=== PATIENT | male | born 1955 | race Caucasian/White ===

== ENCOUNTER 2020-11-14 14:27 | Inpatient (IN) | payer MEDICARE, OTHER ==
[2020-11-14 16:24] LABS: #Lymphocytes 1.2 thou/uL (1.20-3.40); #Monocytes 1.1 thou/uL (0.11-0.59); #Neutrophils 15.4 thou/uL (1.40-6.50); %Basophils 0.1 % (0.0-1.0); %Eosinophils 0.3 % (0.0-10.0); %Lymphocytes 6.9 % (21.0-51.0); %Monocytes 6.3 % (0.0-10.0); %Neutrophils 86.5 % (42.0-75.0); Hemoglobin 16.4 g/dL (14.0-18.0); Mean Corpuscular HGB CONC 33.2 g/dL (32.0-36.0); Mean Corpuscular Hemoglobin 31.7 pg (27.0-31.0); Mean Corpuscular Volume 95.5 fL (78.0-98.0); Mean Platelet Volume 8.3 fL (7.4-10.4); Platelet Count 129 thou/uL (130-400); RBC Distribution Width 12.1 % (11.5-14.5); Red Blood Cell (RBC) Count 5.17 mill/uL (4.70-6.10); White Blood Cell (WBC) Count 17.8 thou/uL (4.8-10.8)
[2020-11-14 16:44] LABS: ALT (SGPT) 19 U/L (8-55); AST (SGOT) 10 U/L (5-34); Albumin 3.9 g/dL (3.4-4.8); Alkaline Phosphatase 90 U/L (40-110); Anion Gap 14 mmol/L (10-20); BUN (Urea Nitrogen) 15 mg/dL (8.4-25.7); Bilirubin, Total 1.4 mg/dL (0.2-1.2); Calc. Creatinine Clearance 0 mL/min (70-130); Calcium 9.1 mg/dL (7.8-10.44); Carbon Dioxide 23 mmol/L (23-31); Chloride 101 mmol/L (98-107); Globulin 3.5 g/dL (2.4-3.5); Glucose 121 mg/dL (80-115); Potassium 4.2 mmol/L (3.5-5.1); Protein, Total 7.4 g/dL (5.8-8.1); Sodium 134 mmol/L (136-145)
[2020-11-14] MEDS ORDERED: Vancomycin 1 GM/200 ML BAG ONE (17:40)
[2020-11-14 18:02] LABS: Bacteria/HPF None Seen HPF (None Seen); Bilirubin Negative (Negative); Blood, Urine Trace (Negative); Clarity Clear (Clear); Glucose, Urine (Dipstick) Normal (Negative); Ketone, Urine Negative (Negative); Leukocyte 250 Leu/uL (Negative); Nitrite Negative (Negative); Protein, Urine (Dipstick) 50 mg/dL (Neg-Trace); RBC/HPF 0-3 HPF (0-3); Specific Gravity, Urine 1.022 (1.002-1.036); Squamous Epithelial 0-3 HPF (0-3); WBC/HPF Greater than 50 HPF (0-3); pH, Urine 5.5 (5.0-9.0)
[2020-11-14] MEDS ORDERED: MEROPENEM 1 GM/50 ML 1 GM in Premix Bag 1 BAG IVPB SCH (18:15)
[2020-11-14] MEDS ORDERED: Acetaminophen 500 MG TAB ONE (23:45)
[2020-11-15] MEDS ORDERED: Acetaminophen 325 MG TAB PO PRN (00:25)
[2020-11-15] MEDS: Sodium Chloride 0.45% 1,000 ML IV SCH ×2 (01:09→15:31)
--- NOTE | 2020-11-15 01:19 | PDOC.HHP ---
Hospitalist HPI History of Present Illness: ADMISSION DATE: 11/15/2020 TIME OF ASSESSMENT:003 PRIMARY CARE PHYSICIAN: Dr. Shruthi Mroton CHIEF COMPLAINT: Dysuria and fever HPI: This is a pleasant 65-year-old gentleman who presents to the emergency department as instructed by his primary care physician Dr. Jose cassidy after undergoing laboratory studies indicated he had an infection. The patient states he first noted feeling unwell last Friday with chills, and general malaise as well as a burning sensation with urination. Reports having a urinary tract infection years ago. By Friday he was feeling worse and saw his primary care doctor on Friday. He was found to have a urine infection and started on oral an tibiotics with ciprofloxacin. The patient did not feel any better after starting antibiotics Friday evening and states he had laboratory studies done today indicating he had a significant infection therefore advised to come into the emergency department for IV antibiotics. Labs had demonstrated a white cell count of 20 and bands of 19%. At the moment he feels well but complains of a mild headache and burning behind his eyes which he associates to having a high temperature. He was just given a gram of Tylenol in a few minutes ago. He states his urine output has decreased over the weekend and recalls having limited p.o. intake on Friday. States his appetite has been low but he denies any nausea or vomiting. No diarrhea. Denies any hematuria. No chest pain palpitations or shortness of breath. No cough or hemoptysis. All other review of systems are negative. Patient states when he had a urine infection several years ago he was seen by urologist who completed a cystoscopy. The patient was told that he had normal anatomy associated with scarring possibly related to horseback riding which he did in his younger years. He was told if he ever needed a Leon catheter and needed to be placed by a urologist. ED COURSE: Vital signs on arrival to the emergency department showed a blood pressure 157/82, HR 88, RR 17, O2 sat 97% on room air, temp 90.9. Laboratory studies showing a white cell count of 17.8, hemoglobin 16.4, hematocrit 49.4, platelets 129, neutrophils 86.4%. Sodium 134, potassium 4.2, BUN 15, creatinine 1.7, GFR 69. Glucose 121, calcium 9.1, total bilirubin 1.4, AST 10, ALT 19, alkaline phosphatase 90. Lactic acid 1.2 Urinalysis demonstrated 250 leukocytes, negative for nitrates, 50 protein, 2.0 urobilinogen, trace blood, greater than 50 white blood cells, no bacteria present. He was started on IV antibiotics with meropenem and vancomycin. He received 1 L of normal saline. His temperature spiked and therefore was given 1 g of Tylenol. Allergies/Adverse Reactions: Allergy/AdvReac Type Severity Reaction Status Date / Time ceftriaxone [From Rocephin] Allergy Hives Unverified 11/14/20 18:13 Past History: PAST MEDICAL HISTORY: None PAST SURGICAL HISTORY: None SOCIAL HISTORY: Denies any tobacco use, alcohol consumption or drug use. Fully independent at baseline. FAMILY HISTORY: Noncontributory Hospitalist Exam Vitals: Vital signs temp 98.9, HR 85, BP 138/74, RR 27, O2 sat 94% on room General Appearance: NAD, awake alert Eye: PERRL, anicteric sclera ENT: normocephalic atraumatic, no oropharyngeal lesions, dry oral mucosa Neck: supple, no lymphadenopathy Heart: RRR, no murmur, no gallops, no rubs, normal peripheral pulses Respiratory: CTAB, no wheezes, no rales, no ronchi, normal chest expansion Gastrointestinal: soft, non-tender, non-distended, normal bowel sounds, no guarding, no rigidity Extremities: no cyanosis, no clubbing, no edema Skin: normal turgor, no lesions, no rashes Neurological: cranial nerve grossly intact, normal sensation to touch Musculoskeletal: normal tone, normal strength, no muscle wasting Psychiatric: normal affect, normal behavior, A&O x 3 Hospitalist Results Result Diagrams: 11/14/20 16:05 11/14/20 16:05 Lab results: Laboratory Last Values WBC 17.8 thou/uL (4.8-10.8) H 11/14/20 16:05 RBC 5.17 mill/uL (4.70-6.10) 11/14/20 16:05 Hgb 16.4 g/dL (14.0-18.0) 11/14/20 16:05 Hct 49.4 % (42.0-52.0) 11/14/20 16:05 MCV 95.5 fL (78.0-98.0) 11/14/20 16:05 MCH 31.7 pg (27.0-31.0) H 11/14/20 16:05 MCHC 33.2 g/dL (32.0-36.0) 11/14/20 16:05 RDW 12.1 % (11.5-14.5) 11/14/20 16:05 Plt Count 129 thou/uL (130-400) L 11/14/20 16:05 MPV 8.3 fL (7.4-10.4) 11/14/20 16:05 Neutrophils % 86.5 % (42.0-75.0) H 11/14/20 16:05 Lymphocytes % 6.9 % (21.0-51.0) L 11/14/20 16:05 Monocytes % 6.3 % (0.0-10.0) 11/14/20 16:05 Eosinophils % 0.3 % (0.0-10.0) 11/14/20 16:05 Basophils % 0.1 % (0.0-1.0) 11/14/20 16:05 Neutrophils # 15.4 thou/uL (1.40-6.50) H 11/14/20 16:05 Lymphocytes # 1.2 thou/uL (1.20-3.40) 11/14/20 16:05 Monocytes # 1.1 thou/uL (0.11-0.59) H 11/14/20 16:05 Eosinophils # 0.0 thou/uL (0.0-0.7) 11/14/20 16:05 Basophils # 0.0 thou/uL (0.0-0.2) 11/14/20 16:05 Sodium 134 mmol/L (136-145) L 11/14/20 16:05 Potassium 4.2 mmol/L (3.5-5.1) 11/14/20 16:05 Chloride 101 mmol/L (98-107) 11/14/20 16:05 Carbon Dioxide 23 mmol/L (23-31) 11/14/20 16:05 Anion Gap 14 mmol/L (10-20) 11/14/20 16:05 BUN 15 mg/dL (8.4-25.7) 11/14/20 16:05 Creatinine 1.07 mg/dL (0.7-1.3) 11/14/20 16:05 Estimated GFR (MDRD) 69 11/14/20 16:05 Glucose 121 mg/dL (80-115) H 11/14/20 16:05 Lactic Acid 1.2 mmol/L (0.5-2.2) 11/14/20 16:05 Calcium 9.1 mg/dL (7.8-10.44) 11/14/20 16:05 Total Bilirubin 1.4 mg/dL (0.2-1.2) H 11/14/20 16:05 AST 10 U/L (5-34) 11/14/20 16:05 ALT 19 U/L (8-55) 11/14/20 16:05 Alkaline Phosphatase 90 U/L (40-110) 11/14/20 16:05 Serum Total Protein 7.4 g/dL (5.8-8.1) 11/14/20 16:05 Albumin 3.9 g/dL (3.4-4.8) 11/14/20 16:05 Globulin 3.5 g/dL (2.4-3.5) 11/14/20 16:05 Albumin/Globulin Ratio 1.1 g/dL (1.2-2.2) L 11/14/20 16:05 Urine Color Yellow (Yellow) 11/14/20 17:37 Urine Clarity Clear (Clear) 11/14/20 17:37 Urine pH 5.5 (5.0-9.0) 11/14/20 17:37 Ur Specific [place] 1.022 (1.002-1.036) 11/14/20 17:37 Urine Protein 50 mg/dL (Neg-Trace) A 11/14/20 17:37 Urine Glucose (UA) Normal mg/dL (Negative) 11/14/20 17:37 Urine Ketones Negative mg/dL (Negative) 11/14/20 17:37 Urine Blood Trace (Negative) A 11/14/20 17:37 Urine Nitrite Negative (Negative) 11/14/20 17:37 Urine Bilirubin Negative (Negative) 11/14/20 17:37 Urine Urobilinogen 2.0 mg/dL (Less than 2) A 11/14/20 17:37 Ur Leukocyte Esterase 250 Eriberto/uL (Negative) A 11/14/20 17:37 Urine RBC 0-3 HPF (0-3) 11/14/20 17:37 Urine WBC Greater than 50 HPF (0-3) A 11/14/20 17:37 Ur Squamous Epith Cells 0-3 HPF (0-3) 11/14/20 17:37 Urine Bacteria None Seen HPF (None Seen) 11/14/20 17:37 Hospitalist H&P A/P (1) Fever with leukocytosis and leukocyte count less than 20,000 Code(s): D72.829 - ELEVATED WHITE BLOOD CELL COUNT, UNSPECIFIED Status: Acute (2) Dysuria Code(s): R30.0 - DYSURIA Status: Acute (3) UTI (urinary tract infection) Status: Acute Plan: Continue IV antibiotics UCx and BCx done with results pending IV fluids started COVID testing ordered If patient developed retention requiring leon cath, will need to be placed by Urology due to abnormal anatomy/scarring. Tylenol for TOBIN/Fever prn GI Prophylaxis with famotidine DVT Prophylaxis with mechanical SCDs CODE STATUS FULL Case discussed with attending who agrees with plan as above
[2020-11-15] MEDS ORDERED: VANCOMYCIN 1.75 GM/350 ML BAG 1.75 GM in Premix Bag 1 BAG IVPB SCH (04:00)
[2020-11-15 05:45] LABS: SARS-CoV-2 PCR by NAA Not Detected (NotDetected)
[2020-11-15] MEDS ORDERED: Meropenem 1 GM in Sodium Chloride 0.9% 100 ML IVPB SCH (06:00)
--- NOTE | 2020-11-15 07:52 | RAD ---
EXAM: CHEST TWO VIEWS 11/15/2020 7:48 AM HISTORY: Baseline chest radiograph COMPARISON: None. FINDINGS: Lungs: No acute airspace consolidation. Heart: Normal in size and contour. Pulmonary Vessels: Normal. Costophrenic Angles: Clear. Pneumothorax: None. Osseous Structures: There are flowing osteophytes involving the anterior margin of the mid thoracic spine consistent with DISH like changes. No acute fracture or subluxation demonstrated. Additional Findings: None. IMPRESSION: No significant acute intrathoracic disease.
[2020-11-15 08:35] LABS: #Eosinphils 0.1 thou/uL (0.0-0.7); #Lymphocytes 0.7 thou/uL (1.20-3.40); #Monocytes 0.6 thou/uL (0.11-0.59); #Neutrophils 10.1 thou/uL (1.40-6.50); %Basophils 0.2 % (0.0-1.0); %Eosinophils 0.7 % (0.0-10.0); %Lymphocytes 5.8 % (21.0-51.0); %Monocytes 4.9 % (0.0-10.0); %Neutrophils 88.4 % (42.0-75.0); Hemoglobin 14.6 g/dL (14.0-18.0); Mean Corpuscular HGB CONC 33.6 g/dL (32.0-36.0); Mean Corpuscular Hemoglobin 32.6 pg (27.0-31.0); Mean Platelet Volume 8.4 fL (7.4-10.4); Platelet Count 121 thou/uL (130-400); RBC Distribution Width 12.1 % (11.5-14.5); Red Blood Cell (RBC) Count 4.47 mill/uL (4.70-6.10); White Blood Cell (WBC) Count 11.4 thou/uL (4.8-10.8)
[2020-11-15] MEDS: Famotidine/PF 20 mg/2ml Vial SLOW IVP SCH ×2 (08:40→21:17)
[2020-11-15 09:03] LABS: Anion Gap 14 mmol/L (10-20); BUN (Urea Nitrogen) 17 mg/dL (8.4-25.7); Calc. Creatinine Clearance 109 mL/min (70-130); Calcium 8.4 mg/dL (7.8-10.44); Carbon Dioxide 24 mmol/L (23-31); Chloride 103 mmol/L (98-107); Glucose 166 mg/dL (80-115); Magnesium 2.1 mg/dL (1.6-2.6); Potassium 3.8 mmol/L (3.5-5.1); Sodium 137 mmol/L (136-145)
[2020-11-15] MEDS: MEROPENEM 1 GM/50 ML 1 GM in Premix Bag 1 BAG IVPB SCH ×3 (10:17→23:00)
[2020-11-15] MEDS: VANCOMYCIN 1.75 GM/350 ML BAG 1.75 GM in Premix Bag 1 BAG IVPB SCH ×2 (11:42→21:00)
[2020-11-15 12:06] VITALS: BMI 32.8
--- NOTE | 2020-11-15 17:42 | PDOC.HOSPP ---
- Subjective Encounter Date: 11/15/20 Encounter Time: 17:41 Subjective: Mr. Whitmore was seen today in follow-up of sepsis, likely from UTI. He says he feels better today. No new complaints. - Objective Vital Signs & Weight: Vital Signs (12 hours) Temp Pulse Resp BP Pulse Ox 11/15/20 16:32 99.7 F H 76 18 120/67 94 L 11/15/20 11:23 97.9 F 96 20 132/75 96 11/15/20 08:00 95 11/15/20 06:00 97.9 F 86 20 128/73 95 Weight Weight 242 lb I&O: 11/14/20 11/15/20 11/16/20 06:59 06:59 06:59 Intake Total 640 Balance 640 Result Diagrams: 11/15/20 07:57 11/15/20 07:57 Hospitalist ROS - Medication Medications: Active Medications Generic Name Dose Route Start Last Admin Trade Name Freq PRN Reason Stop Dose Admin Famotidine 20 mg 11/15/20 09:00 11/15/20 08:40 Famotidine/Pf 20 Mg/2ml Vial SLOW IVP 20 mg Q12HR TOÑITO Administration Sodium Chloride 1,000 mls @ 75 mls/hr 11/15/20 01:00 11/15/20 15:31 1/2 Normal Saline IV 1,000 mls .[id number] TOÑITO Administration Meropenem 1 gm/ Device 50 mls @ 100 mls/hr 11/15/20 06:00 11/15/20 15:29 IVPB 50 mls Q8HR TOÑITO Administration Vancomycin HCl 1.75 gm/ Device 350 mls @ 175 mls/hr 11/15/20 08:00 11/15/20 11:42 IVPB 350 mls 0800,2000 TOÑITO Administration Hospitalist Exam Vitals: Vital Signs (12 hours) Temp Pulse Resp BP Pulse Ox 11/15/20 16:32 99.7 F H 76 18 120/67 94 L 11/15/20 11:23 97.9 F 96 20 132/75 96 11/15/20 08:00 95 11/15/20 06:00 97.9 F 86 20 128/73 95 Weight Weight 242 lb General Appearance: NAD, awake alert Eye: PERRL, anicteric sclera Heart: RRR, no murmur, no gallops, no rubs, normal peripheral pulses Respiratory: CTAB, no wheezes, no rales, no ronchi, normal chest expansion, no tachypnea, normal percussion Gastrointestinal: soft, non-tender, non-distended, normal bowel sounds, no palpable masses, no hepatomegaly Extremities: no cyanosis (palpable d.p. pulses, no lesions), 1+ LE edema Hosp A/P (1) UTI (urinary tract infection) Status: Acute (2) Fever Code(s): R50.9 - FEVER, UNSPECIFIED Status: Acute - Plan * Fever and Leukocytosis- likely due to UTI * Awaiting culture results * Will check a post void residual to determine if he has urinary retention * Will change his status to inpatient
[2020-11-16] MEDS: MEROPENEM 1 GM/50 ML 1 GM in Premix Bag 1 BAG IVPB SCH (06:24)
[2020-11-16] MEDS: Sodium Chloride 0.45% 1,000 ML IV SCH ×2 (06:28→20:38)
[2020-11-16] MEDS: VANCOMYCIN 1.75 GM/350 ML BAG 1.75 GM in Premix Bag 1 BAG IVPB SCH (08:22)
[2020-11-16] MEDS: Famotidine/PF 20 mg/2ml Vial SLOW IVP SCH ×2 (08:23→20:40)
[2020-11-16] MEDS ORDERED: Sulfameth/Trimethoprim DS 800-160mg TAB PO SCH (09:00)
--- NOTE | 2020-11-16 11:34 | PDOC.HOSPP ---
- Subjective Encounter Date: 11/16/20 Encounter Time: 11:23 - Objective Vital Signs & Weight: Vital Signs (12 hours) Temp Pulse Resp BP Pulse Ox 11/16/20 08:00 94 L 11/16/20 07:37 98.0 F 67 20 118/68 94 L 11/16/20 04:00 98.6 F 76 18 133/78 11/16/20 00:00 99 F 83 18 111/65 98 Weight Weight 242 lb I&O: 11/15/20 11/16/20 11/17/20 06:59 06:59 06:59 Intake Total 960 480 Output Total 260 Balance 700 480 Result Diagrams: 11/15/20 07:57 11/15/20 07:57 Hospitalist ROS - Medication Medications: Active Medications Generic Name Dose Route Start Last Admin Trade Name Freq PRN Reason Stop Dose Admin Acetaminophen 650 mg 11/15/20 00:25 11/16/20 01:18 Acetaminophen 325 Mg Tab PO 650 mg Q4H PRN Administration Headache/Fever or Pain Famotidine 20 mg 11/15/20 09:00 11/16/20 08:23 Famotidine/Pf 20 Mg/2ml Vial SLOW IVP 20 mg Q12HR TOÑITO Administration Sodium Chloride 1,000 mls @ 75 mls/hr 11/15/20 01:00 11/16/20 06:28 1/2 Normal Saline IV 1,000 mls .[id number] TOÑITO Administration Hospitalist Exam Vitals: Vital Signs (12 hours) Temp Pulse Resp BP Pulse Ox 11/16/20 08:00 94 L 11/16/20 07:37 98.0 F 67 20 118/68 94 L 11/16/20 04:00 98.6 F 76 18 133/78 11/16/20 00:00 99 F 83 18 111/65 98 Weight Weight 242 lb
--- NOTE | 2020-11-16 15:23 | PDOC.HOSPP ---
- Subjective Encounter Date: 11/16/20 Encounter Time: 11:23 Subjective: F/u: UTI The patient states he had a bad night last night. He reports his whole shirt was soaked in sweat. He denies dysuria, nausea/vomiting, abdominal pain - Objective Vital Signs & Weight: Vital Signs (12 hours) Temp Pulse Resp BP Pulse Ox 11/16/20 12:00 98.0 F 72 20 129/75 97 11/16/20 08:00 94 L 11/16/20 07:37 98.0 F 67 20 118/68 94 L 11/16/20 04:00 98.6 F 76 18 133/78 Weight Weight 242 lb I&O: 11/15/20 11/16/20 11/17/20 06:59 06:59 06:59 Intake Total 960 800 Output Total 260 Balance 700 800 Result Diagrams: 11/15/20 07:57 11/15/20 07:57 Hospitalist ROS - Review of Systems Constitutional: denies: fever, chills - Medication Medications: Active Medications Generic Name Dose Route Start Last Admin Trade Name Freq PRN Reason Stop Dose Admin Acetaminophen 650 mg 11/15/20 00:25 11/16/20 01:18 Acetaminophen 325 Mg Tab PO 650 mg Q4H PRN Administration Headache/Fever or Pain Famotidine 20 mg 11/15/20 09:00 11/16/20 08:23 Famotidine/Pf 20 Mg/2ml Vial SLOW IVP 20 mg Q12HR TOÑITO Administration Sodium Chloride 1,000 mls @ 75 mls/hr 11/15/20 01:00 11/16/20 06:28 1/2 Normal Saline IV 1,000 mls .[id number] TOÑITO Administration Hospitalist Exam Vitals: Vital Signs (12 hours) Temp Pulse Resp BP Pulse Ox 11/16/20 12:00 98.0 F 72 20 129/75 97 11/16/20 08:00 94 L 11/16/20 07:37 98.0 F 67 20 118/68 94 L 11/16/20 04:00 98.6 F 76 18 133/78 Weight Weight 242 lb General Appearance: NAD, awake alert Eye: PERRL, anicteric sclera ENT: normocephalic atraumatic, no oropharyngeal lesions Neck: no JVD Heart: RRR, no murmur, no gallops, no rubs Respiratory: CTAB, no wheezes, no rales, no ronchi, no tachypnea Gastrointestinal: soft, non-tender, non-distended, normal bowel sounds Extremities: no cyanosis, no clubbing, no edema Skin: normal turgor, no lesions, no rashes Hosp A/P - Plan Chest Xray: normal This is a 65 year old male who presented with sweats, chills and dysuria. He was diagnosed with a UTI UTI - failed outpatient ciprofloxacin. WBC has improved to 11. Blood cultures negative, urine culture grew biggs-sensitive E coli - will d/c IV antibiotics and switch to oral levaquin. Monitor clinical response and repeat CBC tomorrow - likely d/c in the am if improves Leukocytosis - WBC 11.4, will repeat CBC today to evaluate for improvement Dispo: likely d/c tomorrow
--- NOTE | 2020-11-16 15:26 | PQF ---
CLINICAL DOCUMENTATION CLARIFICATION FORM: Dear Dr. GUERRA Date / Time: 11/16/2020 3299 Please exercise your independent, professional judgment in responding to the clarification form. Clinical indicators are provided on the bottom of this form for your review. Please check appropriate box(es): [ ] Sepsis due to UTI [ ] Sepsis not due to UTI [ S ] Localized infection without sepsis [ ] SIRS due to non-infectious process (please specify etiology) [ ] with organ dysfunction [ ] without organ dysfunction [ ] Other diagnosis [ ] Unable to determine In addition, please specify: Present on Admission (POA): [ S ] Yes [ ] No [ ] Unable to determine For continuity of documentation, please document condition throughout progress notes and discharge summary. Thank You. To be completed by CDI/Coding staff for physician review: CLINICAL INDICATORS - SIGNS / SYMPTOMS / LABS / RESULTS AND LOCATION IN MR WBC 3/ 17.8 WBC 3/ 11.4 Pt stated he first noted feeling unwell last Friday with chills, and general malaise as well as a burning sensation with urination. By Friday he was feeling worse and saw his primary care doctor on Friday. He was found to have a urine infection and started on oral antibiotics with ciprofloxaxin. (H&P/Murry) 3/ Mr Whitmore was seen today in follow up of sepsis, likely from UTI. A/P UTI, FEVER(PN/Abdias) 3/3 RISK FACTORS / RESULTS AND LOCATION IN MR UTI, fever w leukocytosis ( H&P/ Murry) 3/3 TREATMENTS / RESULTS AND LOCATION IN MR Urine culture 3/2 Vancomycin IV ( 11/15 present) Thank you! CDS Signature: Gina Dow RN Phone #: [phone] Date: 11/16/20 This is a permanent part of the Medical Record [facility]
[2020-11-16 15:58] LABS: Mean Corpuscular HGB CONC 34.3 g/dL (32.0-36.0); Mean Corpuscular Hemoglobin 32.8 pg (27.0-31.0); Mean Corpuscular Volume 95.5 fL (78.0-98.0); Mean Platelet Volume 7.6 fL (7.4-10.4); Platelet Count 132 thou/uL (130-400); Red Blood Cell (RBC) Count 4.28 mill/uL (4.70-6.10); White Blood Cell (WBC) Count 5.5 thou/uL (4.8-10.8)
[2020-11-17 06:17] LABS: Hemoglobin 14.8 g/dL (14.0-18.0); Mean Corpuscular HGB CONC 32.7 g/dL (32.0-36.0); Mean Corpuscular Volume 94.8 fL (78.0-98.0); Mean Platelet Volume 8.1 fL (7.4-10.4); Platelet Count 157 thou/uL (130-400); RBC Distribution Width 12.1 % (11.5-14.5); Red Blood Cell (RBC) Count 4.78 mill/uL (4.70-6.10); White Blood Cell (WBC) Count 7.7 thou/uL (4.8-10.8)
[2020-11-17] MEDS: Sodium Chloride 0.45% 1,000 ML IV SCH (06:27)
[2020-11-17 06:41] LABS: ALT (SGPT) 61 U/L (8-55); AST (SGOT) 24 U/L (5-34); Albumin 3.6 g/dL (3.4-4.8); Alkaline Phosphatase 80 U/L (40-110); Anion Gap 13 mmol/L (10-20); BUN (Urea Nitrogen) 12 mg/dL (8.4-25.7); Bilirubin, Total 0.9 mg/dL (0.2-1.2); Calc. Creatinine Clearance 131 mL/min (70-130); Calcium 8.8 mg/dL (7.8-10.44); Carbon Dioxide 21 mmol/L (23-31); Chloride 105 mmol/L (98-107); Globulin 3.2 g/dL (2.4-3.5); Glucose 138 mg/dL (80-115); Protein, Total 6.8 g/dL (5.8-8.1); Sodium 135 mmol/L (136-145)
[2020-11-17 08:13] VITALS: BP 129/69; TEMP 98.6
[2020-11-17] MEDS: Famotidine/PF 20 mg/2ml Vial SLOW IVP SCH (08:51)
--- NOTE | 2020-11-17 15:32 | PDOC.DS.DS ---
Provider Date of Admission: 11/15/20 17:41 Date of Discharge: 11/17/20 Admitting Provider: Balaji Hickman MD Primary Care Physician: Shruthi Morton MD Course Hospital Course: Discharge Diagnoses: 1. Acute cystitis 2. Leukocytosis 3. Mildly elevated ALT Brief HPI: This is a 65 year old male who presented with chills, general malaise and dysuria. The patient went to his PCP's office and was treated with ciprofloxacin for a UTI. He took two pills of this and had blood work the following day. He had a WBC of 20 and was told to go to the hospital. Vital signs were normal. Hospital Course: The patient was started on IV vancomycin and meropenem on admission. Urine c ulture grew E coli that was biggs-sensitive. His leukocytosis resolved. The patient was transitioned to levaquin. His WBC the following day remained normal at 7.7. He denied any dysuria. He was discharged with six more days of levaquin. He was advised to follow up with his primary care doctor in a week. Of note, his ALT slightly increased to 61 at the time of discharge. Please repeat this in a week. Pertinent Studies: Chest Xray: no acute disease Resuscitation Status: 11/15/20 00:19 Resuscitation Status Routine Co-Sign Provider: Resuscitation Status: FULL: Full Resuscitation Lab Results: 11/17/20 05:50 11/17/20 05:50 Abnormal Lab Results - Last 48 hrs 11/16/20 15:50: RBC 4.28 L, Hct 40.9 L, MCH 32.8 H 11/17/20 05:50: Sodium 135 L, Carbon Dioxide 21 L, ALT 61 H, Albumin/Globulin Ratio 1.1 L Microbiology - Entire Visit 11/14/20 17:37 Urine voided Urine Culture - Final NO GROWTH AT 48 HOURS 11/14/20 16:05 Venous blood - Left Hand Blood Culture - Preliminary NO GROWTH AT 48 HOURS 11/14/20 16:05 Venous blood - Left Arm Blood Culture - Preliminary NO GROWTH AT 48 HOURS Vitals: Vital Signs (12 hours) Temp Pulse Resp BP Pulse Ox 11/17/20 08:00 98.6 F 74 15 129/69 95 Weight Weight 242 lb Physical Exam: The patient was seen and examined on the day of discharge. General Appearance: NAD, awake alert Eye: PERRL, anicteric sclera ENT: normocephalic atraumatic, no oropharyngeal lesions Neck: supple, symmetric, no JVD Respiratory: CTAB, no wheezes, no rales, no ronchi, no tachypnea Cardiovascular: RRR, no murmur, no gallops, no rubs Gastrointestinal: soft, non-tender, non-distended, normal bowel sounds Extremities: no cyanosis, no clubbing, no edema Skin: normal turgor, no lesions, no rashes Neurological: cranial nerve grossly intact, normal sensation to touch, no focal deficits Musculoskeletal: normal tone, normal strength, no muscle wasting, generalized weakness PSYCH: normal affect, normal behavior, A&O x 3 Plan Prescriptions: Levofloxacin [Levaquin] 750 mg PO 0600 #5 tab Home Medications: Medication Instructions Recorded Confirmed Type Levofloxacin [Levaquin] 750 mg PO 0600 #5 tab 11/17/20 Rx Allergies: ceftriaxone [From Rocephin] Allergy (Intermediate, Verified 11/15/20 11:56) Hives sulfamethoxazole [From Bactrim] Allergy (Verified 11/16/20 09:18) Hives trimethoprim [From Bactrim] Allergy (Verified 11/16/20 09:18) Discharge Instructions:: You presented with a UTI. Your urine culture grew E coli. Please take levaquin for five more days to complete a seven day course of antibiotics. Follow up with your PCP in a week. One of your liver enzymes was slightly elevated (ALT was 61). Please repeat this in a week. Activity:: Activity as Tolerated Referrals: Shruthi Morton MD [Primary Care Provider] - Disposition: HOME Quality CORE MEASURES:: N/A
== END 2020-11-17 11:02 | disposition home or self-care (01) | DRG 690 ==
LOC: ERS 14:27 → ERHOLD 18:35 → T4-A 11-15 06:21 → OBSVTOIN 11-15 17:41
PROVIDERS: ADMIT Internal Medicine; ATTEND Internal Medicine
DX: N30.00 Acute cystitis without hematuria (principal); Z20.822 Contact with and (suspected) exposure to COVID-19; B96.20 Unspecified Escherichia coli [E. coli] as the cause of diseases classified elsewhere; Z88.1 Allergy status to other antibiotic agents; Z88.2 Allergy status to sulfonamides
CPT/HCPCS: 36415; 71046; 80048; 80053; 81001; 81003; 81015; 83605; 83735; 85025; 85027; 87040; 87077; 87086; 87186; 87635; 96365; 96366; 96367; J2185; J3370; S0028; U0003; U0005

== ENCOUNTER 2020-12-25 15:10 | Outpatient (CLI) | payer MEDICARE, OTHER | END 2020-12-25 15:11 | disposition home or self-care (01) | LOC: BICULT 15:10 | PROVIDERS: ATTEND Internal Medicine | DX: N39.0 Urinary tract infection, site not specified (principal) | CPT/HCPCS: 36415; 76770; 80053; G0103 ==

== ENCOUNTER 2021-09-28 13:05 | Outpatient (CLI) | payer MEDICARE, OTHER | END 2021-09-28 13:06 | disposition home or self-care (01) | LOC: BICRAD 13:05 | PROVIDERS: ATTEND Internal Medicine | DX: M25.551 Pain in right hip (principal); M54.50 Low back pain, unspecified; M16.11 Unilateral primary osteoarthritis, right hip; M47.816 Spondylosis without myelopathy or radiculopathy, lumbar region | CPT/HCPCS: 72100 ==

== ENCOUNTER 2025-08-04 12:54 | Outpatient (CLI) | payer MEDICARE, OTHER | END 2025-08-04 12:55 | disposition home or self-care (01) | LOC: RAD 12:54 | PROVIDERS: ATTEND Internal Medicine | DX: M25.551 Pain in right hip (principal); M47.816 Spondylosis without myelopathy or radiculopathy, lumbar region | CPT/HCPCS: 72100 ==